=== PATIENT | female | born 1975 | race Caucasian/White ===

== ENCOUNTER 2016-08-08 18:24 | Emergency (ER) | payer BC, OTHER ==
[2016-08-08 19:52] VITALS: BP 127/70
--- NOTE | 2016-08-08 20:06 | UC ---
Respiratory Complaint HPI - HPI Summary HPI Summary: The patient comes in today for: 1. Left ear ache, headache, sore throat, cough: Onset: 1 week Palliative/provocative: Nothing makes her symptoms better or worse. Quality: Ache Region: Left ear is an ache, throat is sore. Severity: Ear (2/10), headache: 1/10 Time: Constant. Associated symptoms: Fevers: None. Rhinitis: Clear. Cough: Yellow sputum. Headache/sinus pain: frontal. Previous treatment: 07-05-16 Augmentin. Son has strep throat. Upper tooth pain: None. * - History of Current Complaint Chief Complaint: UCEar Stated Complaint: LEFT EAR, THROAT Time Seen by Provider: 08/08/16 19:57 Hx Obtained From: Patient Hx Last Menstrual Period: 3 weeks ?: No - Allergies/Home Medications Allergies/Adverse Reactions: Allergies Allergy/AdvReac Type Severity Reaction Status Date / Time Codeine Allergy Vomiting Verified 08/08/16 19:35 Home Medications: Home Medications Multivitamins/Minerals TAB* [Thera M Plus TAB*] 1 tab PO DAILY 08/08/16 [ History Confirmed 08/08/16] PMH/Surg Hx/FS Hx/Imm Hx Previously Healthy: Yes Endocrine History Of: Denies: Diabetes, Thyroid Disease, Hyperthyroidism, Hypothyroidism, Dyslipidemia Cardiovascular History Of: Denies: Cardiac Disorders, Hypertension, Pacemaker/ICD, Myocardial Infarction , Congestive Heart Failure, Atrial Fibrillation, Deep Vein Thrombosis, Bleeding Disorders Respiratory History Of: Denies: COPD, Asthma, Bronchitis, Pneumonia, Pulmonary Embolism GI/ History Of: Denies: Gastroesophageal Reflux, Ulcer, Gastrointestinal Bleed, Gall Bladder Disease, Kidney Stones, Diverticulitis, Renal Disease, Urosepsis Neurological History Of: Denies: TIA, CVA, Dementia, Seizures, Migraine Psychological History Of: Denies: Anxiety, Depression, Bipolar Disorder, Schizophrenia, Post Traumatic Stress Disorder Cancer History Of: Denies: Lung Cancer, Colorectal Cancer, Breast Cancer, Prostate Cancer, Cervical Cancer Other History Of: Negative For: HIV, Hepatitis B, Hepatitis C, Anticoagulant Therapy - Surgical History Surgical History: None - Family History Known Family History: Positive: Hypertension Negative: Cardiac Disease Family History: no family history of cardiac disorders - Social History Occupation: Employed Full-time Alcohol Use: Occasionally Substance Use Type: None Smoking Status (MU): Never Smoked Tobacco Have You Smoked in the Last Year: No Review of Systems Constitutional: Negative Skin: Negative Eyes: Negative ENT: Sore Throat, Ear Ache, Nasal Discharge Respiratory: Cough Cardiovascular: Negative Gastrointestinal: Negative Genitourinary: Negative All Other Systems Reviewed And Are Negative: Yes Physical Exam Triage Information Reviewed: Yes Appearance: Well-Appearing, No Pain Distress, Well-Nourished Vital Signs: Initial Vital Signs Temp 98.5 F 08/08/16 19:28 Pulse 86 08/08/16 19:28 Resp 20 08/08/16 19:28 BP 127/70 08/08/16 19:28 Pulse Ox 98 08/08/16 19:28 Vital Signs Reviewed: Yes Eyes: Positive: Conjunctiva Clear. Negative: Discharge ENT: Positive: Hearing grossly normal. Negative: Pharyngeal erythema, Nasal congestion, Nasal drainage, TM bulging, TM dull, TM red, Tonsillar swelling, Tonsillar exudate Dental: Negative: Gross Decay/Caries @, Dental Fracture @ Neck: Positive: Supple, Nontender, No Lymphadenopathy, Nuchal Rigidity Respiratory: Positive: Lungs clear, No respiratory distress, No accessory muscle use. Negative: Crackles, Wheezing Cardiovascular: Positive: RRR, No Murmur Abdomen Description: Positive: Nontender, No Organomegaly, Soft. Negative: Distended, Guarding Musculoskeletal: Positive: Strength Intact, ROM Intact, No Edema Neurological: Positive: Alert, Muscle Tone Normal Psychological: Positive: Age Appropriate Behavior, Consolable Skin: Negative: rashes, breakdown UC Diagnostic Evaluation - Laboratory O2 Sat by Pulse Oximetry: 98 Diagnostic Studies Comment: Strep test: (-). Respiratory Course/Dx - Differential Dx/Diagnosis Differential Diagnosis/HQI/PQRI: Bronchitis, Laryngitis, Sinusitis Provider Diagnoses: Left eustachian tube dysfunction. Viral pharyngitis. Viral upper respiratory infection. Discharge - Discharge Plan Condition: Stable Disposition: HOME Patient Education Materials: Pharyngitis (ED), Upper Respiratory Infection (ED) , General Headache (ED) Referrals: John Oneill DO [Primary Care Provider] - 1 Week (Please see your primary care provider as needed. If you have any problems, be seen again at that time.)
== END 2016-08-08 21:05 | disposition home or self-care (01) ==
LOC: UCCORT 18:24
DX: H69.92 Unspecified Eustachian tube disorder, left ear (principal); J02.9 Acute pharyngitis, unspecified; J06.9 Acute upper respiratory infection, unspecified; Z88.2 Allergy status to sulfonamides
CPT/HCPCS: 87651; 99212; G0463

== ENCOUNTER 2017-06-20 15:31 | Emergency (ER) | payer BC ==
[2017-06-20 16:46] VITALS: BP 135/77
--- NOTE | 2017-06-20 17:15 | UC ---
Complaint Female HPI - HPI Summary HPI Summary: 41 year old with urinary complaint. PT DX'D WITH KIDNEY STONE ON 06/10/17, POSSIBILITY STONE HAS PASSED, PT NO LONGER IN IN PAIN. PT PRESENTS TODAY FEELING URGENCY TO VOID WITH ONLY SMALL AMTS OF URINE, FULLNESS OF LOWER ABD. PT ALSO C/O WHITISH DISCHARGE. No n/v/d. No fever. No new sexual partners. No hx of STD. No pain with sex. No blood in urine. has had some white discharge and odor vaginally [ End ] - History Of Current Complaint Chief Complaint: UCGU Stated Complaint: URINARY Time Seen by Provider: 06/20/17 17:10 Hx Obtained From: Patient Hx Last Menstrual Period: 06/09/17 Onset/Duration: Gradual Onset Severity Initially: Moderate Severity Currently: Mild Associated Signs And Symptoms: Negative: Fever, Back Pain - Allergies/Home Medications Allergies/Adverse Reactions: Allergies Allergy/AdvReac Type Severity Reaction Status Date / Time Codeine Allergy Vomiting Verified 06/20/17 16:46 PMH/Surg Hx/FS Hx/Imm Hx Previously Healthy: Yes GI/ History: Kidney Stones, Other Other GI/ History: C diff Other History Of: Negative For: HIV, Hepatitis B, Hepatitis C, Anticoagulant Therapy - Surgical History Surgical History: None - Family History Known Family History: Positive: Hypertension Negative: Cardiac Disease Family History: no family history of cardiac disorders - Social History Occupation: Employed Full-time Lives: With Family Alcohol Use: Rare Substance Use Type: None Smoking Status (MU): Never Smoked Tobacco Have You Smoked in the Last Year: No Review of Systems Genitourinary: Frequency, Urgency Is Patient Immunocompromised?: No All Other Systems Reviewed And Are Negative: Yes Physical Exam Triage Information Reviewed: Yes Appearance: Well-Appearing, No Pain Distress, Well-Nourished Vital Signs: Initial Vital Signs Temp 98.2 F 06/20/17 16:37 Pulse 90 06/20/17 16:37 Resp 18 06/20/17 16:37 BP 135/77 06/20/17 16:37 Pulse Ox 98 06/20/17 16:37 Vital Signs Reviewed: Yes Eye Exam: Normal ENT Exam: Normal Dental Exam: Normal Neck exam: Normal Neck: Positive: 1 Respiratory Exam: Normal Cardiovascular Exam: Normal Abdominal Exam: Normal Abdomen Description: Positive: Nontender, No Organomegaly, Soft. Negative: Bruit, CVA Tenderness (R), CVA Tenderness (L), Distended, Guarding Musculoskeletal Exam: Normal Neurological Exam: Normal Psychological Exam: Normal Skin Exam: Normal Complaint Female Dx - Course Course Of Treatment: As we discussed at this time we will treat you as having a yeast infection. With your Urine check not showing obvious UTI and your history of C Diff we will not treat you with antibiotics unless your symptoms worsen or have a (+) Urine Culture. She wants to follow up with PCP and if any concerns at that time then she is willing to have a vaginal exam. - Differential Dx/Diagnosis Differential Diagnosis/HQI/PQRI: Ureteral Stone, Urinary Tract Infection Provider Diagnoses: Yeast infection Discharge - Discharge Plan Condition: Good Disposition: HOME Prescriptions: Fluconazole [Diflucan 150 MG (NF)] 150 mg PO ONCE #1 tab Sulfamethox/Trimethoprim DS* [Bactrim DS 800/160 TAB*] 1 tab PO DAILY #6 tab Patient Education Materials: Yeast Infection (ED), Urinary Tract Infection in Women (DC) Referrals: No Primary Care Phys,NOPCP [Primary Care Provider] - 4 Days Additional Instructions: As we discussed at this time we will treat you as having a yeast infection. With your Urine check not showing obvious UTI and your history of C Diff we will not treat you with antibiotics unless your symptoms worsen or have a (+) Urine Culture.
== END 2017-06-20 18:08 | disposition home or self-care (01) ==
LOC: UCCORT 15:31
DX: B37.89 Other sites of candidiasis (principal); R39.15 Urgency of urination; R35.0 Frequency of micturition; R50.9 Fever, unspecified; Z87.442 Personal history of urinary calculi; Z88.5 Allergy status to narcotic agent
CPT/HCPCS: 81003; 87086; 87106; 99212; G0463

== ENCOUNTER 2018-07-13 07:20 | Emergency (ER) | payer OTHER ==
--- OUTSIDE RECORDS SUMMARY | 2018-07-13 07:36 | XMS REPORT | Continuity of Care Document ---
:1975 External Reference #:[id number] Author Name Lakshmi Guevara M.D. Address [address] [facility] [place] [address] Care Team Providers Name Role Phone Sean Long M.D. Primary Care Physician Unavailable Payers Type Date Identification Numbers Payment Provider Subscriber Policy Number: [id number] [facility] Jamie Chen Group Number: [id number] [address] Group Name: [id number] [place] [address] PayID: [id number] Advance Directives Description No Information Available Problems Date Description Provider Status Onset: 06/27/2018 Ingestion dermatitis due to food Lakshmi Guevara M.D. 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 Home Environment Has central air Home Environment Finished Basement Home Environment The basement is dry Home Environment Cotton Comforter Home Environment Mattress is 8 years old Home Environment Mattress is not encased in an allergy proof case Home Environment Rubber Mattress Home Environment Pillows are not encased in an allergy proof case Home Environment Pillows are polyester Home Environment Does not use a dehumidifier Home Environment There are draperies in the home Home Environment The home is not pablo Home Environment The floors are carpeted bedroom Home Environment The floors are wood Home Environment The floors are tile Home Environment Uses forced air heating Home Environment [place] Smoke-Free Home is smoke-free Smoke-Free Work is smoke-free Pets None 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 generic only [facility]# [id number] Epipen 2-Tawanda Active Device 0.3mg/0.3M 1units as L27.2 Lakshmi Guevara M.D. Immunizations CPT Code Status Date Vaccine Lot # [id number] Given Unknown Influenza Vaccine Vital Signs Date Vital Result Comment 06/27/2018 8:22am Height 64 inches 5'4" Weight 235.00 lb Weight 106.596 kg Respiratory Rate 20 /min Heart Rate 68 /min O2 % BldC Oximetry 97 % BP Systolic 111 mmHg BP Diastolic 64 mmHg BMI (Body Mass Index) 40.3 kg/m2 09/30/2012 8:58am Height 64 inches 5'4" Weight 203.00 lb Weight 92.081 kg Heart Rate 74 /min O2 % BldC Oximetry 97 % BP Systolic 104 mmHg BP Diastolic 62 mmHg BMI (Body Mass Index) 34.8 kg/m2 Results Test Date Facility Test Result H/L Range Note Laboratory test 09/30/2012 [facility] Crab Allergen <0.35 kU/L [address] [place] [address] [phone] Lobster Allergen IgE <0.35 kU/L 2 Shrimp Allergen IgE <0.35 kU/L 3 Celiac Panel 09/30/2012 [facility] Immunoglobulin A 192 mg/dL 61 - 356 [address] [place] [address] [phone] Tissue Transglutaminase IgA Ab <1.2 U/mL 4 Celiac Interpretation See Comment 5 Laboratory test 09/30/2012 [facility] Immunoglobulin E 1375 kU/ L Abnormal [address] [place] [address] [phone] 1 Class 0 (Negative <0.35) Test Performed by: [place] [address] Ex Chef: Vu Tomlinson III, M.D. 2 Class 0 (Negative <0.35) Test Performed by: [place] [address] Ex Chef: Vu Tomlinson III, M.D. 3 Class 0 (Negative <0.35) Test Performed by: [place] [address] Ex Chef: Vu Tomlinson III, M.D. 4 -- REFERENCE VALUE -- <4.0 (Negative) Test Performed by: [place] [address] Ex Chef: Vu Tomlinson III, M.D. 5 Negative serology. Celiac disease unlikely. However, approximately 10% of patients with celiac disease are seronegative. Also, patients who are already adhering to a gluten-free diet may be seronegative. If celiac disease is highly clinically suspected, consider HLA-DQ typing. Test Performed by: [place] [address] Ex Chef: Vu Tomlinson III, M.D. 6 -- REFERENCE VALUE -- Mean 13.2 +1SD 41.0 +2SD 127.0 Test Performed by: [place] [address] Ex Chef: Vu Tomlinson III, M.D. Procedures Date Code Description Status 06/27/2018 72045 Skin Test Scratch # Of Units ____ Completed 09/30/2012 07729 Skin Test Scratch # Of Units ____ Completed 09/30/2012 64857 Oxygen Level - Pulse Oximiter Completed Encounters Type Date Location Provider Dx Diagnosis Office Visit 10/16/2012 [facility] Samantha Ryan, 693.1 Dermatitis Due To 9:20a BREAKDOWN PERSON-C Food V15.05 Allergy To Other Foods Office Visit 09/30/2012 9:00a [facility] Lakshmi Lopez 693.1 Dermatitis Due To José Guevara Food Plan of Treatment 06/27/2018 - Lakshmi Guevara M.D.L27.2 Dermatitis due to ingested foodNew Medication:Epinephrine 0.3 mg/0.3ML - use as directed - mylan generic only [facility]# [id number] Labs:Allergy Shrimp Ige, Ordered: 06/27/18Rast Lobster F80, Ordered: 06/27/18Allergy Crab F23, Ordered: 06/27/18Follow up:call in 1-2 weeks to review labs -possible skin testing after reviewing labsRecommendations: Refrain from wearing perfumes/scented colognes while visiting our office. Continue strict avoidanceof shrimp for now. check IgE to avoided foods - shrimp , lobster, crab skin test today - negative to cod, salmon, scallop and clam; negative testing is highly suggestive, but not a guarantee these foodswill be tolerated Refer to your emergency plan in case of accidental ingestion/ exposure. EpiPen prescribed; indications for use reviewed and technique demonstrated. Refer to [email or web address] for further information.
--- OUTSIDE RECORDS SUMMARY | 2018-07-13 07:36 | XMS REPORT | Continuity of Care Document ---
:1975 External Reference #:[id number] Author Name YUDY Arciniega Address [address] [facility] [place] [address] Care Team Providers Name Role Phone Sean Long M.D. Primary Care Physician Unavailable Payers Type Date Identification Numbers Payment Provider Subscriber Policy Number: [id number] [facility] Jamie Chen Group Number: [id number] [address] Group Name: [id number] [place] [address] PayID: [id number] Advance Directives Description No Information Available Problems [...] Sons Home Environment Does not use air patient care Home Environment Has central air Home Environment [...] Description Reaction Status Severity Comments 09/30/2012 Codeine Active vomiting and passing out Medications Medication Date Status Form Strength Qnty SIG Indications Ordering Provider Epinephrine Active Solution 0.3mg/0.3M 2units use as L27.2 Lakshmi John Monica Auto-Injec greg Jimenez M.D. generic only [facility]# [id number] -[id number] Epipen 2-Tawanda Active Device 0.3mg/0.3M 1units as L27.2 Lakshmi Guevara M.D. Immunizations CPT Code Status Date Vaccine Lot # [id number] Given Unknown Influenza Vaccine Vital Signs Date Vital Result Comment 07/08/2018 4:10pm Height 64 inches 5'4" Weight 233.00 lb Weight 105.689 kg Respiratory Rate 20 /min Heart Rate 100 /min O2 % BldC Oximetry 98 % BP Systolic 110 mmHg BP Diastolic 79 mmHg BMI (Body Mass Index) 40.0 kg/m2 06/27/2018 8:22am Height 64 inches 5'4" Weight [...] Date Facility Test Result H/L Range Note Allergy Shrimp Ige 06/27/2018 [facility] Shrimp Allergen <0.35 kU/L [address] [place] [address] [phone] Laboratory test 06/27/2018 [facility] Rast Lobster <0.35 kU/L [address] [place] [address] [phone] Allergy Crab F23 06/27/2018 [facility] Crab Allergen <0.35 kU/L [address] [facility] [place] [address] [phone] Laboratory test 09/30/2012 [facility] Crab Allergen <0.35 kU/L [address] [place] [address] [place] [address] [phone] Lobster Allergen IgE <0.35 kU/L 5 Shrimp Allergen IgE <0.35 kU/L 6 Celiac Panel 09/30/2012 [facility] Immunoglobulin A 192 mg/dL 61 - [address] [place] [address] [phone] Tissue Transglutaminase IgA Ab <1.2 U/mL 7 Celiac Interpretation See Comment 8 Laboratory test 09/30/2012 [facility] Immunoglobulin E 1375 kU/ L Abnormal [address] [place] [address] [phone] 1 Class 0 (Negative <0.35) Test Performed by: [place] [address] 2 Class 0 (Negative <0.35) Test Performed by: [place] [address] 3 Class 0 (Negative <0.35) Test Performed by: [place] [address] 4 Class 0 (Negative <0.35) Test Performed by: [place] [address] Machinery Dismantler: Vu Tomlinson III, M.D. 5 Class 0 (Negative <0.35) Test Performed by: [place] [address] Machinery Dismantler: Vu Tomlinson III, M.D. 6 Class 0 (Negative <0.35) Test Performed by: [place] [address] Machinery Dismantler: Vu Tomlinson III, M.D. 7 -- REFERENCE VALUE -- <4.0 (Negative) Test Performed by: [place] [address] Machinery Dismantler: Vu Tomlinson III, M.D. 8 Negative serology. Celiac disease unlikely. However, approximately 10% of patients with celiac disease are seronegative. Also, patients who are already adhering to a gluten-free diet may be seronegative. If celiac disease is highly clinically suspected, consider HLA-DQ typing. Test Performed by: [facility] - [address] [address] Machinery Dismantler: Vu Tomlinson III, M.D. 9 -- REFERENCE VALUE -- Mean 13.2 +1SD 41.0 +2SD 127.0 Test Performed by: [facility] - [address] [address] Machinery Dismantler: Vu Tomlinson III, M.D. Procedures Date Code Description Status 07/08/2018 62079 Skin Test Scratch # Of Units ____ Completed 06/27/2018 83234 Skin Test Scratch # Of Units ____ Completed 09/30/2012 31837 Skin Test Scratch # Of Units ____ Completed 09/30/2012 78400 Oxygen Level - Pulse Oximiter Completed Encounters Type Date Location Provider Dx Diagnosis Office Visit 06/27/2018 [facility] Lopez L27.2 Dermatitis due to 8:20a José Guevara ingested food Office Visit 10/16/2012 [facility] Samantha Ryan, 693.1 Dermatitis Due To 9:20a TOLL LINEMAN-C Food V15.05 Allergy To Other Foods Office Visit 09/30/2012 9:00a [facility] Lakshmi Lopez 693.1 Dermatitis Due To José Guevara Food Plan of Treatment 07/08/2018 - RAUDEL Arciniega-CL27.2 Dermatitis due to ingested foodRecommendations:Refrain from wearing perfumes/scented colognes while visiting our office. You tested negative to shrimp, crab and lobster
[2018-07-13 07:46] VITALS: BP 129/78
--- NOTE | 2018-07-13 08:28 | UC ---
Throat Pain/Nasal Edward HPI - HPI Summary HPI Summary: 42 yr old female, recent diflucan use due to yeast infection, but no other abx, c/o sore throat x 1-2 days, no fever, + aches. concerned about flu. - History of Current Complaint Chief Complaint: UCRespiratory Stated Complaint: THROAT Time Seen by Provider: 07/13/18 08:12 Hx Obtained From: Patient Hx Last Menstrual Period: 3 weeks ?: No Onset/Duration: Sudden Onset, Lasting Days Severity: Moderate Pain Intensity: 7 Pain Scale Used: 0-10 Numeric Cough: Nonproductive - Allergies/Home Medications Allergies/Adverse Reactions: Allergies Allergy/AdvReac Type Severity Reaction Status Date / Time codeine Allergy Vomiting Verified 07/13/18 07:39 Home Medications: Home Medications ALPRAZolam TAB* [Xanax TAB*] 0.25 mg PO QID PRN 07/13/18 [History Confirmed 03/21] Acetaminophen [Tylenol Extra Strength] 1,000 mg PO ONCE PRN 07/13/18 [History Confirmed 07/13/18] Tylenol Cold Sinus 2 tab PO ONCE 07/13/18 [History Confirmed 07/13/18] PMH/Surg Hx/FS Hx/Imm Hx Previously Healthy: Yes Other History Of: Negative For: HIV, Hepatitis B, Hepatitis C, Anticoagulant Therapy - Surgical History Surgical History: None - Family History Known Family History: Positive: Hypertension Negative: Cardiac Disease Family History: no family history of cardiac disorders - Social History Alcohol Use: Rare Substance Use Type: None Smoking Status (MU): Never Smoked Tobacco Have You Smoked in the Last Year: No Review of Systems All Other Systems Reviewed And Are Negative: Yes Constitutional: Positive: Chills, Fatigue ENT: Positive: Sore Throat, Nasal Discharge, Sinus Congestion, Sinus Pain/ Tenderness Is Patient Immunocompromised?: No Physical Exam Triage Information Reviewed: Yes Appearance: No Pain Distress, Well-Nourished, Ill-Appearing - moderate Vital Signs: Initial Vital Signs Temp 97.8 F 07/13/18 07:42 Pulse 88 07/13/18 07:42 Resp 18 07/13/18 07:42 BP 129/78 07/13/18 07:42 Pulse Ox 99 07/13/18 07:42 Vital Signs Reviewed: Yes ENT: Positive: Pharyngeal erythema, TMs normal, Tonsillar swelling, Tonsillar exudate, Sinus tenderness, Uvula midline Neck: Positive: Supple, Tenderness @, Enlarged Nodes @ - b/l LAD. Negative: Nuchal Rigidity Respiratory: Positive: Chest non-tender, Lungs clear, Normal breath sounds, No respiratory distress. Negative: Crackles, Rhonchi, Stridor, Wheezing Cardiovascular: Positive: RRR, No Murmur Neurological Exam: Normal Psychological Exam: Normal Skin Exam: Normal Throat Pain/Nasal Course/Dx - Course Course Of Treatment: rapid strep +, abx given, work note. - Differential Dx/Diagnosis Differential Diagnosis/HQI/PQRI: Laryngitis, Pharyngitis Provider Diagnosis: Strep pharyngitis Discharge - Sign-Out/Discharge Documenting (check all that apply): Patient Departure All imaging exams completed and their final reports reviewed: No Studies - Discharge Plan Condition: Good Disposition: HOME Prescriptions: Amoxicillin PO (*) [Amoxicillin 500 MG CAP*] 500 mg PO Q12H #20 cap Patient Education Materials: Amoxicillin (By mouth), Strep Throat (DC) Forms: *Work Release Referrals: Kathleen Bentley PA [Primary Care Provider] - Additional Instructions: - Increase fluid intake - Follow up with primary physician within 5-7 days for re-evaluation - Antibiotics as directed - 500mg twice daily x 10 days - Tylenol/ Motrin as needed for pain - Over the counter medication as needed for symptoms - Go to ER with shortness of breath, chest pain, increased pain, fever > 102, rash on chest or red tongue. - Billing Disposition and Condition Condition: GOOD Disposition: Home
== END 2018-07-13 08:31 | disposition home or self-care (01) ==
LOC: UCCORT 07:20
DX: J02.0 Streptococcal pharyngitis (principal); Z88.5 Allergy status to narcotic agent
CPT/HCPCS: 87651; 99212; G0463

== ENCOUNTER 2019-07-14 09:13 | Emergency (ER) | payer OTHER ==
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
[2019-07-14 10:07] VITALS: BP 116/67
== END 2019-07-14 10:21 | disposition home or self-care (01) ==
LOC: UCCORT 09:13
DX: T21.21XA Burn of second degree of chest wall, initial encounter (principal); Z88.5 Allergy status to narcotic agent; Z86.19 Personal history of other infectious and parasitic diseases; X12.XXXA Contact with other hot fluids, initial encounter; Y92.9 Unspecified place or not applicable
CPT/HCPCS: 99212; G0463